=== PATIENT | female | born 1995 | race African-American/Black ===

== ENCOUNTER 2023-12-28 05:16 | Emergency (ER) | payer OTHER ==
[~2023-12-28] VITALS: Ht 162.6 cm; Wt 68.0 kg
[2023-12-28 05:23] VITALS: O2SAT 100
[2023-12-28] MEDS: ACETAMINOPHEN 325MG TABLET PO STA (05:51)
[2023-12-28] MEDS ORDERED: IBUP-2029 MT (07:09)
[2023-12-28 07:26] VITALS: BP 135/78; PULSE 99; RESP 18; TEMP 98.1
== END 2023-12-28 07:27 | disposition home or self-care (01) ==
LOC: ER 05:46
DX: S20.219A Contusion of unspecified front wall of thorax, initial encounter (principal); S40.012A Contusion of left shoulder, initial encounter; X58.XXXA Exposure to other specified factors, initial encounter; Y93.89 Activity, other specified; Y92.89 Other specified places as the place of occurrence of the external cause; Y99.8 Other external cause status
CPT/HCPCS: 71045; 73030; 93005; 99284